=== PATIENT | male | born 1990 | race Hispanic/Latino ===

== ENCOUNTER 2017-12-20 | Emergency (ER) | payer SELFPAY ==
--- NOTE | 2017-12-20 23:08 | ER ---
Nurse's Notes [facility] Name: Yobani Carolina Age: 27 yrs Sex: Male : 1990 Arrival Date: 12/20/2017 Time: 22:56 Bed Waiting Private MD: Diagnosis: Presentation: 12/20 23:07 Note pt left before triage. bb ED Course: :56 Patient arrived in ED. mr Administered Medications: No medications were administered Outcome: 23:07 Patient left the ED. bb Signatures: Veronica Webb Brenda, RN RN bb
== END 2017-12-20 23:07 | disposition left against medical advice (07) ==
DX: Z53.21 Procedure and treatment not carried out due to patient leaving prior to being seen by health care provider (principal)